=== PATIENT | male | born 1990 | race Caucasian/White ===

== ENCOUNTER 2017-02-21 14:54 | Emergency (ER) | payer OTHER ==
--- NOTE | ~2017-02-21 | CR230 ---
[facility]. [facility] A Service of [facility] & [facility] RADIOLOGY TEXT RESULTS PATIENT: FABIEN LE LOCATION: SED : [birth year] UNIT #: [id number] AGE: [address]: Magdalena Smart APRN SEX: M ORDER DR: [id number] [address] [address] [id number] E MR#: [id number] Acc #: [id number] NAME: FABIEN LE : 1990 SEX: M STUDY DATE/TIME: 02/21/2017 15:13 UNIT: SED ROOM: STUDY DESCRIPTION: CR Shoulder Min 2 View Rt Attending Physician: Magdalena Smart A.P.R.N. Ordering Physician: Magdalena Alegre A.P.R.N. Primary Care Physician: Hilda Funes Aprn MEDICAL IMAGING REPORT This report is preliminary unless electronic signature is present. EXAM Right shoulder, 3 views HISTORY SUPPLIED Shoulder pain beginning this morning. No known injury. Lifted weights yesterday. FINDINGS Three views are submitted. The bony elements are intact. No fractures or foreign bodies are seen. CONCLUSION Negative. Dictated by... Caio Pinto M.D. THIS IS AN ELECTRONICALLY VERIFIED REPORT Caio Pinto M.D. at 02/23/2017 2:19 PM Felicitas TD: 02/21/2017 22:10 JOB #: [id number] MEDICAL IMAGING REPORT Page 1 of 1
[~2017-02-21 14:54] MED LIST: BYSTOLIC20 MG PO; IBUPROFEN
== END 2017-02-21 16:30 | disposition home or self-care (01) ==
LOC: SED 14:54
DX: S46.911A Strain of unspecified muscle, fascia and tendon at shoulder and upper arm level, right arm, initial encounter (principal); I10 Essential (primary) hypertension; X50.0XXA Overexertion from strenuous movement or load, initial encounter; Y92.9 Unspecified place or not applicable
CPT/HCPCS: 73030; 99283; J1885